=== PATIENT | female | born 1980 | race Two or more races ===

== ENCOUNTER 2023-07-09 17:14 | Emergency (ER) | payer MEDICAID ==
[~2023-07-09] VITALS: Ht 172.7 cm; Wt 81.6 kg
[2023-07-09 17:33] VITALS: BP 129/81; TEMP 98
[2023-07-09 18:16] LABS: APPEARANCE,URINE Clear (CLEAR); BILIRUBIN,URINE Negative (NEGATIVE); BLOOD, URINE Trace-lysed Ery/uL (NEGATIVE); COLOR,URINE Pink (YELLOW); KETONES,URINE Negative (NEGATIVE); LEUKOCYTE ESTERASE ,URINE Negative (NEGATIVE); NITRITE, URINE Negative (NEGATIVE); PH,URINE 6.5 (5.0-8.0); PROTEIN,URINE Negative (NEGATIVE); UGLUCOSE Negative (NEGATIVE); UROBILINOGEN,URINE 0.2 EU/dL (0.2)
[2023-07-09] MEDS ORDERED: LIDOCAINE 5% (PATCH) 1 EA PATCH TP ONE (18:28)
[2023-07-09] MEDS ORDERED: KETOROLAC TROMETHAMINE 15 MG/ML VIAL ONE (18:28)
[2023-07-09] MEDS ORDERED: CYCLOBENZAPRINE 10 MG TABLET ONE (18:29)
[2023-07-09] MEDS ORDERED: ACETAMINOPHEN ES 500 MG TABLET ONE (18:29)
[2023-07-09] MEDS: ACETAMINOPHEN ES 500 MG TABLET PO ONE (18:37)
[2023-07-09] MEDS: CYCLOBENZAPRINE 10 MG TABLET PO ONE (18:37)
[2023-07-09] MEDS: KETOROLAC TROMETHAMINE 15 MG/ML VIAL IM ONE (18:37)
[2023-07-09] MEDS: LIDOCAINE 5% (PATCH) 1 EA PATCH TP ONE (18:37)
[2023-07-09 18:41] LABS: ADD URINE CULTURE YES; BACTERIA,URINE Few /HPF (None Seen); SQUAMOUS EPITHELIAL CELL,UR Few /HPF (None Seen)
[2023-07-09] MEDS ORDERED: IBUP-1955 PO (19:24)
[2023-07-09] MEDS ORDERED: ACET-2605 PO (19:24)
[2023-07-09] MEDS ORDERED: CYCL5TAB PO (19:24)
[2023-07-09 19:36] VITALS: O2SAT 98
== END 2023-07-09 19:37 | disposition home or self-care (01) ==
LOC: ER 17:18
DX: M54.9 Dorsalgia, unspecified (principal); Z79.899 Other long term (current) drug therapy
CPT/HCPCS: 99284; 96372; 87086; 81001; J1885

== ENCOUNTER 2023-07-15 18:08 | Emergency (ER) | payer MEDICAID ==
[~2023-07-15] VITALS: Ht 167.6 cm; Wt 87.5 kg
[~2023-07-15 18:08] MED LIST: ACET-2605 PO; CYCL5TAB PO; IBUP-1955 PO
[2023-07-15 18:32] VITALS: BP 126/78; TEMP 98
[2023-07-15 19:30] VITALS: O2SAT 98
[2023-07-15] MEDS ORDERED: KETOROLAC TROMETHAMINE INJ 30 MG/ML VIAL ONE (20:41)
[2023-07-15] MEDS: KETOROLAC TROMETHAMINE INJ 30 MG/ML VIAL IM ONE (20:44)
[2023-07-15] MEDS ORDERED: ACET325C7 PO (21:55)
[2023-07-15] MEDS ORDERED: NAPR-1143 PO (21:55)
[2023-07-16] MEDS ORDERED: CEFD300C3 PO (13:49)
== END 2023-07-16 01:00 | disposition home or self-care (01) ==
LOC: ER 18:11
DX: M54.50 Low back pain, unspecified (principal); R10.2 Pelvic and perineal pain
CPT/HCPCS: 99285; 72131; 96372; 36415; 84702; J1885